=== PATIENT | female | born 1980 | race Caucasian/White ===

== ENCOUNTER 2016-11-21 11:24 | Inpatient (IN) | payer OTHER ==
[~2016-11-21] VITALS: Ht 156.2 cm; Wt 70.9 kg
[~2016-11-21 11:24] MED LIST: CONCERTA36 MG PO; CONCERTA54 MG PO; LEVOFLOXACIN750 MG PO; LEVOTHYROXINE150 MCG PO; Levothroid,Synthroid PO; MINASTRIN 24 F1 EACH PO; PRILOSEC40 MG PO; Proventil,Ventolin H IH; TYLENOL EXTRA500 MG PO; VENLAFAXINE HC150 M1 PO; VENLAFAXINE HCL75 M3 PO; VITAMIN B-121000 MC1 SL; VITAMIN D-32000 UNI2 PO; Vicodin,Norco 5/325 PO; WELLBUTRIN XL150 MG PO; celeBREX PO
[2016-11-21 12:03] LABS: HEMATOCRIT 45.6 % (36.0-46.0); MCH 29.7 PG (29.0-34.0); MCHC 34.4 G/DL (30.0-36.0); MCV 86.4 FL (83-99); MEAN PLAT.VOLUME 11.4 uM^3 (9.5-12.4); PLATELET COUNT 324 K/uL (156-360); RBC DIS.WIDTH-CV 13.3 % (11.8-14.6); RBC DIS.WIDTH-SD 41.4 % (39-53); RED BLOOD COUNT 5.28 M/uL (3.80-5.20); WHITE BLOOD COUNT 11.3 K/uL (4.1-10.2)
[2016-11-21 12:10] LABS: BASOPHIL COUNT 0.1 K/uL (0-0.1); EOSINOPHIL (%) 0.5 % (0-5); EOSINOPHIL COUNT 0.1 K/uL (0-0.3); IMMATURE GRANULOCYTE (%) 0.2 % (0.0-0.7); IMMATURE GRANULOCYTE COUNT 0.2 K/uL; MONOCYTE (%) 7.2 % (3-12); MONOCYTE COUNT 0.8 K/uL (0-0.8); NEUTROPHIL (%) 64.9 % (45-76); NEUTROPHIL COUNT 7.3 K/uL (1.8-6.4)
[2016-11-21 12:17] LABS: CHLORIDE 108 mEq/L (99-109); POTASSIUM 4.7 mEq/L (3.7-5.4); SODIUM 143 mEq/L (136-147)
[2016-11-21 12:19] LABS: GLUCOSE 110 mg/dL (70-99)
[2016-11-21 12:20] LABS: ANION GAP 14 MEQ/L (2-14)
[2016-11-21 12:23] LABS: GFR ESTIMATE (CALCULATED) > 59 mL/min/; UREA NITROGEN (BUN) 14 mg/dL (9-23)
[2016-11-21 12:24] LABS: INTER. NORMALIZED RATIO 1.1; PROTHROMBIN TIME 11.4 (9.2-11.2); PTT 28.1 (25-32)
[2016-11-21 12:25] LABS: TROP-I INTERPRETATION NEGATIVE; TROPONIN-I 0.04 ng/mL (0.0-0.30)
[2016-11-21] MEDS ORDERED: SYNTHROID150 MCG PO (14:04)
[2016-11-21] MEDS ORDERED: TYLENOL COLD M1 EAC1 PO (14:05)
[2016-11-21 14:33] LABS: MAGNESIUM 2.3 mg/dL (1.3-2.7)
[2016-11-21 14:57] LABS: HDL CHOLESTEROL 52 MG/DL (Desirable>=50); LDL CHOLESTEROL 92 mg/dL (Desirable<100); NON-HDL CHOLESTEROL 110 mg/dL (Desirable<160); TOTAL CHOLESTEROL 162 mg/dL (Desirable<200); TRIGLYCERIDES 90 MG/DL (Normal: <150)
[2016-11-21 15:09] VITALS: BP 174/60
[2016-11-21 18:35] VITALS: BP 115/74
[2016-11-21 19:21] VITALS: BP 114/67
[2016-11-21 19:29] VITALS: BP 116/57
[2016-11-21 20:39] LABS: TROP-I INTERPRETATION NEGATIVE; TROPONIN-I 0.04 ng/mL (0.0-0.30)
[2016-11-21 23:06] VITALS: BP 110/68
[2016-11-22 04:34] VITALS: BP 122/76
[2016-11-22 04:48] LABS: HEMATOCRIT 39.3 % (36.0-46.0); MCH 29.1 PG (29.0-34.0); MCHC 32.8 G/DL (30.0-36.0); MCV 88.5 FL (83-99); RBC DIS.WIDTH-CV 13.2 % (11.8-14.6); RBC DIS.WIDTH-SD 41.8 % (39-53); RED BLOOD COUNT 4.44 M/uL (3.80-5.20)
[2016-11-22 04:57] LABS: CHLORIDE 109 mEq/L (99-109); POTASSIUM 4.5 mEq/L (3.7-5.4); SODIUM 141 mEq/L (136-147)
[2016-11-22 04:59] LABS: GLUCOSE 99 mg/dL (70-99)
[2016-11-22 05:00] LABS: ANION GAP 6 MEQ/L (2-14)
[2016-11-22 05:01] LABS: TOTAL BILIRUBIN 0.5 mg/dL (0.0-1.0)
[2016-11-22 05:02] LABS: ALKALINE PHOSPHATASE 61 IU/L (3-129)
[2016-11-22 05:03] LABS: GFR ESTIMATE (CALCULATED) > 59 mL/min/
[2016-11-22 05:04] LABS: UREA NITROGEN (BUN) 15 mg/dL (9-23)
[2016-11-22 05:07] LABS: TROP-I INTERPRETATION NEGATIVE; TROPONIN-I 0.02 ng/mL (0.0-0.30)
[2016-11-22 05:31] LABS: HEMATOLOGY COMMENT 1 REV; MEAN PLAT.VOLUME 10.9 uM^3 (9.5-12.4); PLATELET COUNT 211 K/uL (156-360)
[2016-11-22 08:01] VITALS: BP 145/70
[2016-11-22 11:20] VITALS: BP 124/70
[2016-11-22 16:17] VITALS: BP 122/70
[2016-11-22] MEDS ORDERED: LEVOTHYROXINE150 MCG PO (17:01)
== END 2016-11-22 18:15 | disposition home or self-care (01) | DRG 310 ==
LOC: EME 11:24 → EDOF 13:33 → 4EAST 14:35
PROVIDERS: Emergency Medicine; Internal Medicine
DX: I48.91 Unspecified atrial fibrillation (principal); E89.0 Postprocedural hypothyroidism; F90.0 Attention-deficit hyperactivity disorder, predominantly inattentive type; F32.9 Major depressive disorder, single episode, unspecified; E66.9 Obesity, unspecified; Z68.29 Body mass index [BMI] 29.0-29.9, adult; Z98.84 Bariatric surgery status; Z85.850 Personal history of malignant neoplasm of thyroid
CPT/HCPCS: 71010; 80048; 80053; 80061; 83735; 84443; 84484; 85025; 85027; 85610; 85730; 93005; 93306; 99281; 99285; J1160; J1650